=== PATIENT | female | born 1975 | race Caucasian/White ===

== ENCOUNTER → 2020-06-14 | Outpatient (CLI) | payer BC ==
--- NOTE | 2020-06-14 12:32 | KCIC ---
FOOT LEFT 3V DATE: 06/14/2020 12:00 AM INDICATION: Reason: Left foot pain a couple of weeks, no injury, pain shoots up leg. / Spl. Instructions: / History: COMPARISON: None. FINDINGS: Bones: There is no evidence of acute fracture or dislocation. Joints: The joint spaces are normal. Miscellaneous: None. IMPRESSION: No evidence of acute fracture. Electronically signed by: Joni Hensley MD (06/14/2020 12:29 PM) [id number]
== END ==
LOC: KCIC 09:23
PROVIDERS: ATTEND Nurse Practitioner Family
DX: M79.672 Pain in left foot (principal)
CPT/HCPCS: 73630